=== PATIENT | female | born 1990 | race Caucasian/White ===

== ENCOUNTER 2019-04-08 16:42 | Emergency (ER) | payer OTHER ==
[~2019-04-08] VITALS: Ht 157.5 cm; Wt 57.6 kg
[2019-04-08 17:34] VITALS: Ht 157.5 cm; Wt 57.6 kg
--- NOTE | 2019-04-08 20:08 | ERD ---
ER Documentation Chief Complaint Chief Complaint sent fr clinic, possible molar , Dr Reina HPI The patient is a 28-year-old female, sent to the ER from Dr. Arroyo's office for possible molar . She complains of vaginal spotting for the last 2 weeks, denies syncope, near syncope, dizziness, neck pain, chest pain, dyspnea, abdominal pain, vomiting. LMP was January 08, 2019, she has regular menstrual., 2 para 1, does not smoke nor drink Medical history: None Past surgical history: None ROS All systems reviewed and are negative except as per history of present illness. Medications Home Meds Active Scripts Cephalexin* (Keflex*) 500 Mg Capsule, 500 MG PO QID for 7 Days, CAP Prov:RAY SPENCE MD 04/08/19 Allergies Allergies: Coded Allergies: No Known Allergy (Unverified , 04/08/19) Physical Exam Vitals Vital Signs Date Temp Pulse Resp B/P (MAP) Pulse Ox O2 O2 Flow FiO2 Time Delivery Rate 04/09/19 97.9 63 18 107/75 100 00:34 (86) 04/08/19 72 18 116/78 99 22:30 (91) 04/08/19 98.4 74 16 118/77 100 20:24 (91) 04/08/19 99.2 77 18 124/67 100 17:34 (86) Physical Exam Const: No acute distress. Head: Atraumatic. Eyes: Normal Conjunctiva. ENT: Normal External Ears, Nose and Mouth. Neck: Full range of motion. No meningismus. Resp: Clear to auscultation bilaterally. Cardio: Regular rate and rhythm. Abd: Soft, non distended, normal bowel sounds, non tender. Skin: No petechiae or rashes. Back: No midline or flank tenderness. Ext: No cyanosis, or edema. Neur: Awake and alert. No focal deficit Psych: Normal Mood and Affect. Result Diagram: 04/08/192014 Results 24 hrs Laboratory Tests Test 04/08/19 20:15 04/08/19 20:16 04/08/19 20:26 White Blood Count 7.8 10^3/ul Red Blood Count 3.53 10^6/ul Hemoglobin 11.3 g/dl Hematocrit 33.1 % Mean Corpuscular Volume 93.8 fl Mean Corpuscular Hemoglobin 32.0 pg Mean Corpuscular 34.1 g/dl Hemoglobin Concent Red Cell Distribution Width 13.1 % Platelet Count 350 10^3/UL Mean Platelet Volume 9.0 fl Immature Granulocytes % 0.300 % Neutrophils % 60.5 % Lymphocytes % 31.2 % Monocytes % 6.6 % Eosinophils % 0.9 % Basophils % 0.5 % Nucleated Red Blood Cells % 0.0 /100WBC Immature Granulocytes # 0.020 10^3/ul Neutrophils # 4.7 10^3/ul Lymphocytes # 2.4 10^3/ul Monocytes # 0.5 10^3/ul Eosinophils # 0.1 10^3/ul Basophils # 0.0 10^3/ul Nucleated Red Blood Cells # 0.0 10^3/ul Beta HCG, Quantitative 194127.0 mIU/ml Urine Color YELLOW Urine Clarity CLOUDY Urine pH 6.0 Urine Specific [place] 1.024 Urine Ketones 1+ mg/dL Urine Nitrite NEGATIVE mg/dL Urine Bilirubin NEGATIVE mg/dL Urine Urobilinogen NEGATIVE mg/dL Urine Leukocyte Esterase 3+ Zee/ul Urine Microscopic RBC 15 /HPF Urine Microscopic WBC 55 /HPF Urine Squamous Epithelial Cells MODERATE /HPF Urine Bacteria FEW /HPF Urine Mucus MODERATE /HPF Urine Hemoglobin 3+ mg/dL Urine Glucose NEGATIVE mg/dL Urine Total Protein NEGATIVE mg/dl Bedside Urine pH (LAB) 6.5 Bedside Urine Protein (LAB) 1+ Bedside Urine Glucose (UA) Negative Bedside Urine Ketones (LAB) 2+ Bedside Urine Blood 3+ Bedside Urine Nitrite (LAB) Negative Bedside Urine Leukocyte Esterase 1+ (L POC Beta HCG, Qualitative POSITIVE Current Medications Medications Dose Sig/Julien Start Time Status Last (Trade) Ordered Route PRN Stop Time Admin Dose Reason Admin Ceftriaxone 50 ml @ ONCE ONCE 04/08/19 DC 04/08/19 Sodium 100 mls/hr IVPB 23:30 04/08/19 23:21 23:59 Procedures/MDM [place] [id number] Radiology Main Line: [phone] DIAGNOSTIC IMAGING REPORT Patient: MICHELLE PERKINS : 1990 Age: 28 Sex: F MR #: [id number] DOS: 04/08/192008 Ordering MD: RAY SPENCE MD Location: E/R Room/Bed: PROCEDURE: US OB. CLINICAL INDICATION: First trimester hemorrhage. Threatened . TECHNIQUE: Transabdominal views of the pelvis are available for review. COMPARISON: No prior studies are available for comparison. FINDINGS: The uterus is anteverted. It measures 11.1 x 9.1 x 13.8 cm. No intrauterine gestation is seen. The endometrial canal is distended with complex material containing multiple cystic regions. There is hyperemia present within this intraluminal mass. This is suspicious for a molar . The right ovary measures 4.1 x 2.7 x 3.3 centimeter. The left ovary measures 3.3 x 2.2 x 2.9 centimeter. No adnexal masses seen. There is normal arterial flow to both ovaries on color-flow Doppler imaging. There is no free fluid in the pelvis. No solid pelvic mass is present. IMPRESSION: No intrauterine gestation seen. Distension endometrial canal with complex mass containing solid and cystic components which demonstrates hypervascularity. Question molar . Correlation with quantitative beta HCG levels is strongly recommended. Normal ovaries. .Eliazar Treadwell MD, MD Date Time Electronically viewed and signed by .Eliazar Treadwell MD, MD on 04/08/2019 21:20 .A/ CC: RAY SPENCE MD [id number] MEDICAL MAKING DECISION: The patient is a 28-year-old female, presenting with acute molar , acute cystitis. She was treated with IV for acute cystitis, urine culture was submitted The differential diagnoses considered include but are not limited to threatened/incomplete/inevitable/complete , ectopic , non- related bleeding. Departure Diagnosis: Primary Impression: Molar Additional Impressions: UTI (urinary tract infection) Anemia Condition: Good Comments Consultation: I discussed the patient with her data warehouse analyst and 11:25 PM, who recommended to discharge the patient, n.p.o. after midnight and he will see her in the office at 9 AM I discussed the findings with the patient. I advised the patient to follow-up with her data warehouse analyst as mentioned above and return if any concern. His request to be n.p.o. after midnight was made known to the patient. Disclaimer: Inadvertent spelling and grammatical errors are likely due to EHR/dictation software use and do not reflect on the overall quality of patient care. Also, please note that the electronic time recorded on this note does not necessarily reflect the actual time of the patient encounter. RAY SPENCE MD Apr 08, 2019 20:08
[2019-04-08] MEDS ORDERED: CEFTRIAXONE 1 GM/50 ML (PMX) 50 ML IVPB ONE (23:30)
[2019-04-08] MEDS ORDERED: CEPH-443 PO (23:37)
[2019-04-09 00:34] VITALS: BP 107/75; PULSE 63; RESP 18
[2019-04-09] MEDS ORDERED: PREN-93 PO (02:17)
== END 2019-04-09 00:38 | disposition home or self-care (01) ==
LOC: E/R 16:42
DX: O02.0 Blighted ovum and nonhydatidiform mole (principal); O23.41 Unspecified infection of urinary tract in pregnancy, first trimester; O99.011 Anemia complicating pregnancy, first trimester; D64.9 Anemia, unspecified
CPT/HCPCS: 36415; 76801; 81001; 81025; 84702; 85025; 86900; 86901; 87086; 96365; J0696; Z7502; 81003

== ENCOUNTER 2019-04-09 12:19 | Day surgery (SDC) | payer OTHER ==
[2019-04-09] VITALS (16 sets, daily range): BP systolic 99–124; BP diastolic 52–78; PULSE 69–88; RESP 10–19; Ht 157.5 cm; Wt 56.4 kg
[~2019-04-09] VITALS: Ht 157.5 cm; Wt 56.4 kg
[~2019-04-09 12:19] MED LIST: CEPH-443 PO; PREN-93 PO
[2019-04-09] MEDS ORDERED: CEFAZOLIN 2 GM/50 ML (PMX) 50 ML IVPB SCH (13:30)
[2019-04-09] MEDS ORDERED: LACTATED RINGER'S 1,000 ML IV SCH (13:30)
--- NOTE | 2019-04-09 15:17 | PREAC ---
Date/Time of Note Date/Time of Note DATE: 04/09/19 TIME: 15:13 Anesthesia Eval and Record Evaluation Time Pre-Procedure Interview DATE: 04/09/19 TIME: 15:13 Age 28 Sex female NPO: 8 hrs Preoperative diagnosis Mollar Planned procedure Suction D&C Past Medical History Past Medical History: None Surgery & Anesthesia Issues No known issue Meds Anticoagulation: No Beta Ruchi within 24 hr: No Reason Beta Ruchi not given: Pt. not on B-Ruchi Active Scripts Cephalexin* (Keflex*) 500 Mg Capsule, 500 MG PO QID for 7 Days, CAP Prov:RAY SPENCE MD 04/08/19 Reported Medications Vit No.124/Iron/FA ( Vitamin Tablet) 1 Each Tablet, 1 EACH PO DAILY, TAB 04/09/19 Current Medications Lactated Ringer's 1,000 ml @ 125 mls/hr Q8H IV Last administered on 04/09/19at 14:04; Admin Dose 125 MLS/HR; Start 04/09/19 at 13:30; Stop 04/09/19 at 21:29 Cefazolin Sodium/ Dextrose 50 ml @ 100 mls/hr PREOP IVPB ; Start 04/09/19 at 13:30; Stop 04/09/19 at 23:00 Meds reviewed: Yes Allergies Coded Allergies: No Known Allergy (Unverified , 04/08/19) Allergies Reviewed: Yes Labs/Studies Labs Reviewed: Reviewed by anesthesiologist Result Diagram: 04/09/19 1356 Laboratory Tests 04/09/19 13:56 Blood Bank Test 04/09/19 13:56 Antibody Screen NEGATIVE Blood Product Summary Counts Blood Type O POSITIVE Crossmatch Red Blood Cells test: Positive Pre-procedure Exam Last vitals Vital Signs Date Temp Pulse Resp B/P (MAP) Pulse Ox O2 O2 Flow FiO2 Time Delivery Rate 04/09/19 98.5 69 18 113/68 100 Room Air 14:30 (83) Airway: Adequate mouth opening, Adequate thyromental dist Mallampati: Mallampati II Teeth: Normal Lung: Normal Heart: Normal ASA Physical Status ASA physical status: 2 Emergency: None Planned Anesthetic General/MAC: LMA Planned Pain Management Parenteral pain med Pre-operative Attestations Prior to commencing anesthesia and surgery, the patient was re-evaluated, there was verification of: *The patient's identity *The results of appropriate recent lab work and preoperative vital signs *The above evaluation not changing prior to induction *Anesthetic plan, risk benefits, alternative and complications discussed with patient/family; questions answered; patient/family understands, accepts and wishes to proceed. CECILIA PEREIRA MD Apr 09, 2019 15:17
[2019-04-09] MEDS ORDERED: FENTAnyl 50 MCG/ML VIAL ONE (15:34)
[2019-04-09] MEDS ORDERED: MIDAZOLAM 1 MG/ML 2 ML INJ ONE (15:34)
[2019-04-09] MEDS ORDERED: OXYTOCIN 10 UNIT INJ ONE (15:50)
[2019-04-09] MEDS ORDERED: PROPOFOL 20 ML ONE (15:59)
[2019-04-09] MEDS ORDERED: LIDOCAINE 2% (SDV) 5 ML INJ ONE (15:59)
[2019-04-09] MEDS ORDERED: CEFAZOLIN 1 GM INJ ONE (15:59)
[2019-04-09] MEDS ORDERED: ONDANSETRON 4 MG INJ ONE (15:59)
--- NOTE | 2019-04-09 16:04 | OPR ---
Date/Time of Note Date/Time of Note DATE: 04/09/19 TIME: 16:00 Operative Report Procedure Date: Apr 09, 2019 Preoperative Diagnosis Molar Postoperative Diagnosis same Operation/Procedure Performed Suction Dilation and Curettage Surgeon Antoinette Reina MD Rn Primary Care none Anesthesia Type: general Estimated Blood Loss: other (combined EBL and uterine content was 900 ml. probably 100 ml EBL) Transfusion none Specimen POC Grafts/Implants none Tubes/Drains none Complications none Pt Condition Post Procedure: stable Disposition: PACU Procedure Description Uterine content and EBL combined was 900 ml COMPLICATIONS: None. The risks, benefits, indications, alternatives of procedure including, but not limited to risk of infection, bleeding, damage to other organs, bowel, bladder, hernia formation, scar formation, possibility of blood transfusions were discussed with the patient. She was allowed to ask questions. All her questions were answered. Informed consent was obtained. DESCRIPTION OF PROCEDURE: She was taken to the operating room. Spinal anesthesia was induced. She was prepped and draped in the usual dorsal lithotomy sterile fashion. Surgical time out one. Bimanual examination revealed uterus to be 14 weeks in size. Anterior segment of the cervix was grasped with single tooth tenaculum. The cervix was gradually dilated to size 10 Rhea Dilators. Uterus was sounded to 13 cm. Suction curettage was done repeatedly until no further tissue was coming out. Sharp curettage was also done. Tenaculum was removed. there was no bleeding at the end of the procedure. Uterus sounded to 8 cm at the end of the procedure. bimanual examination revealed the uterus to be 8 weeks in size. patient tolerated the procedure well. ANTOINETTE REINA MD Apr 09, 2019 16:04
--- NOTE | 2019-04-09 16:15 | PAC ---
Date/Time of Note Date/Time of Note DATE: 04/09/19 TIME: 16:14 Post-Anesthesia Notes Post-Anesthesia Note Last documented vital signs Vital Signs Date Temp Pulse Resp B/P (MAP) Pulse Ox O2 O2 Flow FiO2 Time Delivery Rate 04/09/19 98.5 69 18 113/68 100 Room Air 14:30 (83) Activity: WNL Respiratory function: WNL Cardiovascular function: WNL Mental status: Baseline Pain reasonably controlled: Yes Hydration appropriate: Yes Nausea/Vomiting absent: Yes Comments BP:112/56, P:88, Spo2:100%, T:98,8 CECILIA PEREIRA MD Apr 09, 2019 16:15
[2019-04-09] MEDS ORDERED: MEPERIDINE 25 MG INJ IV PRN (16:30)
[2019-04-09] MEDS ORDERED: DIPHENHYDRAMINE 50 MG INJ IV PRN (16:30)
[2019-04-09] MEDS ORDERED: METOCLOPRAMIDE 10 MG INJ IV PRN (16:30)
[2019-04-09] MEDS ORDERED: ONDANSETRON 4 MG INJ IV PRN (16:30)
[2019-04-09] MEDS ORDERED: HYDROmorphONE 1 MG/5 ML IV SYRINGE IV PRN ×2 (16:30)
[2019-04-09] MEDS ORDERED: FENTAnyl 50 MCG/ML VIAL IV PRN (16:30)
== END 2019-04-09 18:00 | disposition home or self-care (01) ==
LOC: SUR 12:19 → SDS 12:19 → SUR 17:26
PROVIDERS: ATTEND Specialist
DX: O01.0 Classical hydatidiform mole (principal)
CPT/HCPCS: 59870; 85025; 85610; 85730; 86850; 86900; 86901; 86920; 88305; J0690; J2175; J2250; J2405; J2590; J3010; Z7512; Z7610

== ENCOUNTER 2019-06-16 17:47 | Emergency (ER) | payer OTHER ==
[~2019-06-16] VITALS: Ht 160 cm; Wt 57.8 kg
[2019-06-16 17:56] VITALS: BP 136/88; PULSE 88; RESP 18; Ht 160 cm; Wt 57.8 kg
[2019-06-16] MEDS ORDERED: ACETAMINOPHEN 325 MG TAB PO STA (18:49)
--- NOTE | 2019-06-16 20:34 | ERD ---
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 She has used 1 pad since bleeding began. Her pain is reported 9/10 in severity. She took no medication for relief of symptoms. She denies any nausea, vomiting, diarrhea, fevers, chills, or other symptoms at this time. ROS All systems reviewed and are negative except as per history of present illness. Medications Home Meds Active Scripts Cephalexin* (Keflex*) 500 Mg Capsule, 500 MG PO QID for 7 Days, CAP Prov:RAY SPENCE MD 04/08/19 Reported Medications Vit No.124/Iron/FA ( Vitamin Tablet) 1 Each Tablet, 1 EACH PO DAILY, TAB 04/09/19 Allergies Allergies: Coded Allergies: No Known Allergy (Unverified , 06/16/19) PMhx/Soc Medical and Surgical Hx: pt denies Medical Hx, pt denies Surgical Hx History of Surgery: Yes (April 09 2019 molar preg D&C) Anesthesia Reaction: No Hx Neurological Disorder: No Hx Respiratory Disorders: No Hx Cardiac Disorders: No Hx Psychiatric Problems: No Hx Miscellaneous Medical Probl: No (Para 2 1; April 09 molar ) Hx Alcohol Use: No Hx Substance Use: No Hx Tobacco Use: No Smoking Status: Never smoker FmHx Family History: No diabetes Physical Exam Vitals Vital Signs Date Temp Pulse Resp B/P (MAP) Pulse Ox O2 O2 Flow FiO2 Time Delivery Rate 06/16/19 99.3 88 18 136/88 100 17:56 (104) Physical Exam Const: No acute distress Head: Atraumatic Eyes: Normal Conjunctiva ENT: Normal External Ears, Nose and Mouth. Neck: Full range of motion. No meningismus. Resp: Clear to auscultation bilaterally Cardio: Regular rate and rhythm, no murmurs Abd: Soft, non tender, non distended. Normal bowel sounds. No rebound tenderness or guarding. No McBurney's point tenderness. No suprapubic tenderness on palpation. Skin: No petechiae or rashes Back: No midline or flank tenderness Ext: No cyanosis, or edema Neur: Awake and alert Psych: Normal Mood and Affect Result Diagram: 06/16/19190906/16/191909 Results 24 hrs Laboratory Tests Test 06/16/19 19:10 06/16/19 19:13 White Blood Count 12.0 10^3/ul Red Blood Count 4.20 10^6/ul Hemoglobin 12.0 g/dl Hematocrit 37.9 % Mean Corpuscular Volume 90.2 fl Mean Corpuscular Hemoglobin 28.6 pg Mean Corpuscular Hemoglobin Concent 31.7 g/dl Red Cell Distribution Width 13.6 % Platelet Count 426 10^3/UL Mean Platelet Volume 8.7 fl Immature Granulocytes % 0.500 % Neutrophils % 74.8 % Lymphocytes % 17.1 % Monocytes % 6.2 % Eosinophils % 1.1 % Basophils % 0.3 % Nucleated Red Blood Cells % 0.0 /100WBC Immature Granulocytes # 0.060 10^3/ul Neutrophils # 9.0 10^3/ul Lymphocytes # 2.1 10^3/ul Monocytes # 0.7 10^3/ul Eosinophils # 0.1 10^3/ul Basophils # 0.0 10^3/ul Nucleated Red Blood Cells # 0.0 10^3/ul Urine Color YELLOW Urine Clarity CLEAR Urine pH 6.0 Urine Specific [place] 1.011 Urine Ketones 1+ mg/dL Urine Nitrite NEGATIVE mg/dL Urine Bilirubin NEGATIVE mg/dL Urine Urobilinogen NEGATIVE mg/dL Urine Leukocyte Esterase NEGATIVE Zee/ul Urine Microscopic RBC 133 /HPF Urine Microscopic WBC 0 /HPF Urine Bacteria FEW /HPF Urine Mucus FEW /HPF Urine Hemoglobin 3+ mg/dL Urine Glucose NEGATIVE mg/dL Urine Total Protein NEGATIVE mg/dl Sodium Level 138 mmol/L Potassium Level 3.9 mmol/L Chloride Level 102 mmol/L Carbon Dioxide Level 27 mmol/L Anion Gap 9 Blood Urea Nitrogen 9 mg/dl Creatinine 0.56 mg/dl Est Glomerular Filtrat Rate mL/min > 60 mL/min Glucose Level 97 mg/dl Calcium Level 9.4 mg/dl POC Beta HCG, Qualitative NEGATIVE Current Medications Medications Dose Sig/Julien Start Time Status Last (Trade) Ordered Route PRN Stop Time Admin Dose Reason Admin 650 mg ONCE STAT 06/16/19 DC 06/16/19 Acetaminophen PO 18:49 19:02 (Tylenol 06/16/19 18:50 [place] [address] Radiology Main Line: [phone] DIAGNOSTIC IMAGING REPORT Patient: MICHELLE PERKINS : 1990 Age: 28 Sex: F MR #: [id number] DOS: 06/16/19 1849 Ordering MD: NICK DEAN PA-C Location: [facility]TE Room/Bed: PROCEDURE: US Pelvis Non-OB CLINICAL INDICATION: Pelvic pain TECHNIQUE: Images were taken during real time trans pelvic interrogation. Color-flow and Doppler interrogation of the ovaries was performed. COMPARISON: None FINDINGS: Uterus: The uterus appears anteverted and normal in size measuring 7.7 cm in sagittal diameter and 5.3 x 3.8 cm in cross diameter. The endometrial stripe measures 1.2 cm. Ovaries: The right ovary measures 3.8 x 2.3 x 2.3 cm and contains a 1.5 cm in maximal diameter cyst.. The left ovary measures 3.9 x 2.9 x 2.3 cm and appears unrema rkable. Vascular flow is demonstrated in each ovary on Doppler. Adnexa: No adnexal mass is identified. Free intraperitoneal fluid: None visualized. IMPRESSION: 1. Normal size anteverted empty uterus with the endometrial stripe slightly thickened to 1.2 cm. The molar seen previously is no longer evident. 2. 1.5 cm in maximal diameter right ovarian cyst. This has decreased in size since the previous. The left ovary appears normal. Vascular flow is again demonstrated in each ovary on Doppler. 3. No adnexal mass or free fluid is identified. Physician Margarito Date Time Electronically viewed and signed by Physician Margarito on 06/16/2019 19:45 RH/ CC: NICK DEAN PA-C [id number] Procedures/MDM This is a pleasant 28-year-old female presenting to the emergency department complaining of vaginal bleeding beginning 1.5 hours prior to arrival. CBC showed no evidence of significant leukocytosis or anemia. Chemistry panel was within normal limits. Urinalysis showed no evidence of urinary tract infection. Urine was negative. Pelvic ultrasound revealed normal size anteverted empty uterus with endometrial stripe slightly thickened to 1.2 cm. The molar seen previously is no longer evident. There is a right ovarian cyst. Further details of the study interpreted by the radiologist may be viewed above. Medical decision making: Patient symptoms likely secondary to normal menstr uation or dysfunctional uterine bleeding or other nonemergent process. Patient was not actively bleeding in the department. I doubt ectopic , tubo- ovarian abscess, ovarian torsion, PID, or other emergent process. Patient stable and appropriate for discharge and further outpatient management and follow-up with [facility] physician within 24 to 48 hours. Patient instructed to return to the department immediately for any new or concerning symptoms. I shared my medical decision making with the patient and she understands and agrees with the plan. Departure Diagnosis: Primary Impression: Vaginal bleeding Condition: Fair Patient Instructions: Dysfunctional Uterine Bleeding Referrals: [facility] (PCP) [facility] [place] [address] [facility] [address] [place] [address]ABUSLEME MICHAEL [address] [place] [place] [id number] [facility] [address] [place] [address] [facility] [address] [facility] [address] [address] [place], [place] [id number] [facility] [address] [place] [address] [facility] [id number] - [address]IMA [address], [facility] [address] [address] [place], [place] [address] [facility]. [address], [place] [address] [address], [place] [address] [place] [address] Additional Instructions: Specialist:Usted tiene gelacio condicin mdica que requiere que osvaldo a un especialista dentro de los prximos 1-2 mattson.POR FAVOR,CON GARCIA SEGUIMIENTO DE PRIMARIA PHSICIAN refferal. SI USTED NO TIENE UN MDICO GENERAL Y / O USTED NO PUEDE PAGAR julisa a un mdico,los siguientes bennett RECURSOS sido suministrado a usted. ES GARCIA RESPONSABILIDAD PARA SER VISTOS POR EL ESPECIALISTA: NICK DON PA-C Jun 16, 2019 20:34
== END 2019-06-16 20:00 | disposition home or self-care (01) ==
LOC: FTE 17:47
DX: N93.9 Abnormal uterine and vaginal bleeding, unspecified (principal)
CPT/HCPCS: 36415; 76856; 80048; 81001; 81025; 85025; 87086; Z7502; Z7610